=== PATIENT | female | born 1990 | race African-American/Black ===

== ENCOUNTER 2020-04-13 10:22 | Emergency (ER) | payer MEDICAID ==
[~2020-04-13] VITALS: Ht 165.1 cm; Wt 128.0 kg
[~2020-04-13 10:22] MED LIST: FLOV22
[2020-04-13 11:38] LABS: BASOPHILS % 0.8 % (0.0-2.0); EOSINOPHILS % 1.2 % (0.0-5.0); HEMATOCRIT. 43.8 % (36.0-48.0); HEMOGLOBIN. 15.3 g/dL (12.0-16.0); LYMPHOCYTES % 36.8 % (20.0-50.0); MEAN CORPUSCULAR HEMOGLOBIN 32.8 pg (28.0-32.0); MEAN CORPUSCULAR VOLUME 93.8 fL (81.0-99.0); MEAN PLATELET VOLUME 9.9 fl (7.4-10.4); NEUTROPHILS % 56.2 % (40.0-76.0); PLATELET 251 x1000/uL (130-400); RED BLOOD CELL COUNT 4.67 mill/uL (4.2-5.4); RED CELL DISTRIBUTION WIDTH 13.8 % (11.6-14.6)
[2020-04-13 11:40] LABS: CLARITY URINE TURBID (CLEAR); COLOR URINE RED (YELLOW); KETONES URINE TRACE (NEGATIVE); LEUKOCYTE ESTERASE URINE 1+ (NEGATIVE); NITRITE URINE NEGATIVE (NEGATIVE); OCCULT BLOOD URINE 3+ (NEGATIVE); PROTEIN URINE 1+ (NEGATIVE); SPECIFIC GRAVITY URINE 1.014 (1.005-1.030)
[2020-04-13 11:46] LABS: CHLORIDE 110 mEq/L (98-107)
[2020-04-13 12:23] LABS: B-HCG QUANTITATIVE < 1 mIU/mL (<3)
[2020-04-13] MEDS ORDERED: AZITHROMYCIN 500 MG TABLET PO ONE (13:00)
[2020-04-13] MEDS ORDERED: CEFTRIAXONE SODIUM 250 MG/VIAL IM ONE (13:00)
[2020-04-13 13:08] VITALS: BP 125/80
[2020-04-16 04:07] LABS: NEISSERIA GONORRHOEAE NAA Negative (Negative)
== END 2020-04-13 13:10 | disposition home or self-care (01) ==
LOC: ER 10:22
DX: N72 Inflammatory disease of cervix uteri (principal); N93.9 Abnormal uterine and vaginal bleeding, unspecified; E66.9 Obesity, unspecified; Z68.42 Body mass index [BMI] 45.0-49.9, adult; Z98.890 Other specified postprocedural states
CPT/HCPCS: 36415; 76830; 76856; 80053; 81003; 81025; 84702; 85025; 87210; 87491; 87591; 93005; 96372; 99285; J0696

== ENCOUNTER 2020-07-30 22:13 | Emergency (ER) | payer MEDICAID, OTHER ==
[~2020-07-30] VITALS: Ht 165.1 cm; Wt 129.0 kg
[2020-07-31] MEDS ORDERED: KETOROLAC 60MG/2ML VIAL IM STA (00:19)
[2020-07-31 00:47] LABS: CLARITY URINE CLOUDY (CLEAR); COLOR URINE YELLOW (YELLOW); KETONES URINE NEGATIVE (NEGATIVE); LEUKOCYTE ESTERASE URINE 1+ (NEGATIVE); NITRITE URINE NEGATIVE (NEGATIVE); OCCULT BLOOD URINE NEGATIVE (NEGATIVE); PH URINE 5.5 (4.5-8.0); PROTEIN URINE NEGATIVE (NEGATIVE); SPECIFIC GRAVITY URINE 1.016 (1.005-1.030); UROBILINOGEN URINE 0.2 E.U./dL (0.2-1.0)
[2020-07-31] MEDS ORDERED: BACITRACIN ZINC OINT UDPKT TOP ONE (01:15)
[2020-07-31] MEDS ORDERED: LIDOCAINE HCL/PF 1% 10 MG/ML 5ML VIAL IJ ONE (01:15)
[2020-07-31 02:28] VITALS: BP 124/79
== END 2020-07-31 02:28 | disposition home or self-care (01) ==
LOC: ER 22:13
DX: N76.4 Abscess of vulva (principal); E66.9 Obesity, unspecified; Z68.42 Body mass index [BMI] 45.0-49.9, adult; Z98.890 Other specified postprocedural states
CPT/HCPCS: 56405; 81003; 81025; 96372; 99284; J1885; J3490; 99283

== ENCOUNTER 2021-01-19 17:17 | Emergency (ER) | payer OTHER ==
[~2021-01-19] VITALS: Ht 165.1 cm; Wt 127.0 kg
[2021-01-19] MEDS ORDERED: KETOROLAC 60MG/2ML VIAL IM STA (18:06)
[2021-01-19 19:48] LABS: CLARITY URINE CLEAR (CLEAR); COLOR URINE YELLOW (YELLOW); KETONES URINE NEGATIVE (NEGATIVE); LEUKOCYTE ESTERASE URINE NEGATIVE (NEGATIVE); NITRITE URINE NEGATIVE (NEGATIVE); OCCULT BLOOD URINE NEGATIVE (NEGATIVE); PH URINE 5.5 (4.5-8.0); PROTEIN URINE NEGATIVE (NEGATIVE); SPECIFIC GRAVITY URINE 1.015 (1.005-1.030); UROBILINOGEN URINE 0.2 E.U./dL (0.2-1.0)
[2021-01-19] MEDS ORDERED: IBUP-2029 MT (20:20)
[2021-01-19] MEDS ORDERED: CYCL10TA7 MT (20:20)
[2021-01-19 20:25] VITALS: BP 135/67
== END 2021-01-19 20:35 | disposition home or self-care (01) ==
LOC: ER 17:17
DX: M54.5 Low back pain (principal); M54.16 Radiculopathy, lumbar region; Z98.890 Other specified postprocedural states
CPT/HCPCS: 72100; 81003; 81025; 96372; 99284; J1885; Z7610

== ENCOUNTER 2021-02-22 09:56 | Emergency (ER) | payer MEDICAID, OTHER ==
[~2021-02-22] VITALS: Ht 165.1 cm; Wt 120.0 kg
[~2021-02-22 09:56] MED LIST changes: +CYCL10TA7 MT; +IBUP-2029 MT
[2021-02-22 10:52] VITALS: BP 145/96
[2021-02-22] MEDS ORDERED: DIPHENHYDRAMINE 50MG CAPSULE PO ONE (11:00)
[2021-02-22] MEDS ORDERED: CEPHALEXIN 250MG CAPSULE PO ONE (11:00)
== END 2021-02-22 12:30 | disposition left against medical advice (07) ==
LOC: ER 10:13
DX: T50.995A Adverse effect of other drugs, medicaments and biological substances, initial encounter (principal); F12.10 Cannabis abuse, uncomplicated; F17.210 Nicotine dependence, cigarettes, uncomplicated; Z98.890 Other specified postprocedural states; Y92.018 Other place in single-family (private) house as the place of occurrence of the external cause
CPT/HCPCS: 99283; Q0163

== ENCOUNTER 2021-09-19 19:17 | Emergency (ER) | payer OTHER ==
[~2021-09-19] VITALS: Ht 167.6 cm; Wt 118.0 kg
[2021-09-19] MEDS ORDERED: TETANUS, DIPHTHERIA, PERTUSSIS VAC/PF 0.5ML (>10YR OLD) IM ONE (20:30)
[2021-09-19] MEDS ORDERED: KETOROLAC 30MG/ML VIAL IM ONE (20:30)
[2021-09-19 22:00] VITALS: BP 130/92
== END 2021-09-19 22:00 | disposition home or self-care (01) ==
LOC: ER 19:17
DX: S91.119A Laceration without foreign body of unspecified toe without damage to nail, initial encounter (principal); F12.10 Cannabis abuse, uncomplicated; Z98.890 Other specified postprocedural states; Y93.01 Activity, walking, marching and hiking; Y92.89 Other specified places as the place of occurrence of the external cause; Y99.8 Other external cause status
CPT/HCPCS: 12002; 73630; 90471; 90715; 96372; 99284; J1885; Z7610

== ENCOUNTER 2022-05-29 14:47 | Emergency (ER) | payer MEDICAID, OTHER ==
[~2022-05-29] VITALS: Ht 165.1 cm; Wt 127.0 kg
[~2022-05-29 14:47] MED LIST changes: +CYCL10TA21 MT; -CYCL10TA7 MT
[2022-05-29 21:34] LABS: CLARITY URINE CLOUDY (CLEAR); COLOR URINE YELLOW (YELLOW); KETONES URINE NEGATIVE (NEGATIVE); LEUKOCYTE ESTERASE URINE TRACE (NEGATIVE); NITRITE URINE NEGATIVE (NEGATIVE); OCCULT BLOOD URINE NEGATIVE (NEGATIVE); PH URINE 5.5 (4.5-8.0); PROTEIN URINE NEGATIVE (NEGATIVE); UROBILINOGEN URINE 0.2 E.U./dL (0.2-1.0)
[2022-05-29] MEDS ORDERED: METOCLOPRAMIDE HCL 10MG/2ML VIAL IV ONE (22:00)
[2022-05-29] MEDS ORDERED: KETOROLAC 15MG/ML VIAL IV NR (22:00)
[2022-05-29] MEDS ORDERED: METOCLOPRAMIDE HCL 10 MG in SODIUM CHLORIDE 0.9% 50 ML IV NR (22:00)
[2022-05-29] MEDS ORDERED: IBUP-2029 MT (23:14)
[2022-05-29 23:22] VITALS: BP 124/78
== END 2022-05-29 23:25 | disposition home or self-care (01) ==
LOC: ER 14:47
DX: R51.9 Headache, unspecified (principal); F12.10 Cannabis abuse, uncomplicated; Z98.890 Other specified postprocedural states; Z79.899 Other long term (current) drug therapy
CPT/HCPCS: 81003; 96365; 96375; 99284; J1885; J2765

== ENCOUNTER 2023-01-14 20:24 | Emergency (ER) | payer MEDICAID, OTHER ==
[~2023-01-14] VITALS: Ht 165.1 cm; Wt 136.0 kg
[2023-01-14 20:58] VITALS: BP 123/89
[2023-01-14] MEDS ORDERED: DIPHENHYDRAMINE 50MG CAPSULE PO ONE (22:00)
[2023-01-14] MEDS ORDERED: DIPHENHYDRAMINE 25MG CAPSULE PO NR (22:00)
[2023-01-14] MEDS ORDERED: PREDNISONE 20MG TABLET PO ONE (22:00)
[2023-01-14] MEDS ORDERED: FAMOTIDINE 20MG TABLET PO ONE (22:00)
[2023-01-14] MEDS ORDERED: TETRACAINE 0.5% OPHTH DROPS 4ML RIGHTEYE ONE (23:30)
[2023-01-14] MEDS ORDERED: FLUORESCEIN SODIUM 1MG/STRIP RIGHTEYE ONE (23:30)
[2023-01-15] MEDS ORDERED: POLY10DR RIGHTEYE (00:09)
[2023-01-15] MEDS ORDERED: FAMO-135 MT (00:09)
[2023-01-15] MEDS ORDERED: DIPH25CA83 MT (00:09)
[2023-01-15] MEDS ORDERED: P50 MT (00:09)
== END 2023-01-15 00:20 | disposition home or self-care (01) ==
LOC: ER 20:24
DX: T78.40XA Allergy, unspecified, initial encounter (principal); X58.XXXA Exposure to other specified factors, initial encounter; F12.10 Cannabis abuse, uncomplicated; Z79.899 Other long term (current) drug therapy
CPT/HCPCS: 81025; 99284; J7512; Q0163

== ENCOUNTER 2023-01-27 12:09 | Emergency (ER) | payer OTHER ==
[~2023-01-27] VITALS: Ht 165.1 cm; Wt 136.0 kg
[~2023-01-27 12:09] MED LIST changes: +DIPH25CA83 MT; +FAMO-135 MT; +P50 MT; +POLY10DR RIGHTEYE
[2023-01-27 12:25] VITALS: BP 142/92
[2023-01-27 13:14] LABS: BASOPHILS % 0.9 % (0.0-2.0); EOSINOPHILS % 0.7 % (0.0-5.0); HEMATOCRIT. 41.1 % (36.0-48.0); HEMOGLOBIN. 14.5 g/dL (12.0-16.0); LYMPHOCYTES % 31.8 % (20.0-50.0); MEAN CORPUSCULAR HEMOGLOBIN 32.9 pg (28.0-32.0); MEAN PLATELET VOLUME 9.7 fl (7.4-10.4); MONOCYTES % 4.5 % (2.0-8.0); NEUTROPHILS % 62.1 % (40.0-76.0); PLATELET 260 x1000/uL (130-400); RED BLOOD CELL COUNT 4.42 mill/uL (4.2-5.4); RED CELL DISTRIBUTION WIDTH 13.6 % (11.6-14.6)
[2023-01-27 13:21] LABS: CHLORIDE 107 mEq/L (98-107)
[2023-01-27 13:31] LABS: CLARITY URINE CLOUDY (CLEAR); COLOR URINE YELLOW (YELLOW); KETONES URINE TRACE (NEGATIVE); LEUKOCYTE ESTERASE URINE 2+ (NEGATIVE); NITRITE URINE NEGATIVE (NEGATIVE); OCCULT BLOOD URINE NEGATIVE (NEGATIVE); PROTEIN URINE NEGATIVE (NEGATIVE)
[2023-01-27 15:19] LABS: HCG SCREEN NEGATIVE
== END 2023-01-27 17:45 | disposition home or self-care (01) ==
LOC: ER 12:09
DX: R42 Dizziness and giddiness (principal); F12.10 Cannabis abuse, uncomplicated; Z98.890 Other specified postprocedural states
CPT/HCPCS: 36415; 71045; 80053; 81003; 81025; 84484; 84703; 85025; 93005; 99285

== ENCOUNTER 2023-05-10 12:30 | Emergency (ER) | payer OTHER ==
[~2023-05-10] VITALS: Ht 165.1 cm; Wt 135.0 kg
[2023-05-10 12:48] VITALS: BP 144/96; PULSE 89; RESP 17; TEMP 98.6; O2SAT 98
[2023-05-10] MEDS ORDERED: KETOROLAC 60MG/2ML VIAL IM ONE (14:15)
[2023-05-10] MEDS ORDERED: IBUP-2030 MT (16:20)
== END 2023-05-10 16:46 | disposition home or self-care (01) ==
LOC: ER 12:30
DX: S83.92XA Sprain of unspecified site of left knee, initial encounter (principal); Z98.890 Other specified postprocedural states; X58.XXXA Exposure to other specified factors, initial encounter; Y93.89 Activity, other specified; Y92.89 Other specified places as the place of occurrence of the external cause; Y99.8 Other external cause status
CPT/HCPCS: 73562; 99283

== ENCOUNTER 2023-10-19 19:23 | Emergency (ER) | payer OTHER ==
[~2023-10-19] VITALS: Ht 167.6 cm; Wt 136.0 kg
[~2023-10-19 19:23] MED LIST changes: +IBUP-2030 MT
[2023-10-19 19:35] VITALS: BP 146/101; PULSE 94; RESP 24; TEMP 98.4; O2SAT 98
== END 2023-10-20 01:46 | disposition left against medical advice (07) ==
LOC: ER 19:23
DX: T78.40XA Allergy, unspecified, initial encounter (principal); Z53.21 Procedure and treatment not carried out due to patient leaving prior to being seen by health care provider; X58.XXXA Exposure to other specified factors, initial encounter
CPT/HCPCS: 81025; 99281

== ENCOUNTER 2023-12-13 16:04 | Emergency (ER) | payer MEDICAID, OTHER ==
[~2023-12-13] VITALS: Ht 167.6 cm; Wt 138.0 kg
[2023-12-13 16:37] VITALS: BP 115/70; PULSE 92; RESP 16; TEMP 98.8; O2SAT 100
[2023-12-14] MEDS ORDERED: CEPH500C2 MT (13:11)
== END 2023-12-13 20:31 | disposition left against medical advice (07) ==
LOC: ER 16:04
DX: R51.9 Headache, unspecified (principal); Z53.21 Procedure and treatment not carried out due to patient leaving prior to being seen by health care provider
CPT/HCPCS: 99281

== ENCOUNTER 2023-12-14 10:20 | Emergency (ER) | payer MEDICAID ==
[~2023-12-14] VITALS: Ht 172.7 cm; Wt 123.0 kg
[2023-12-14 10:27] VITALS: O2SAT 100
[2023-12-14 11:49] LABS: BASOPHILS % 0.4 % (0.0-2.0); EOSINOPHILS % 0.9 % (0.0-5.0); HEMATOCRIT. 41.5 % (36.0-48.0); HEMOGLOBIN. 14.5 g/dL (12.0-16.0); LYMPHOCYTES % 29.8 % (20.0-50.0); MEAN CORPUSCULAR HEMOGLOBIN 32.1 pg (28.0-32.0); MEAN CORPUSCULAR HGB CONC 34.9 g/dL (31.0-37.0); MEAN PLATELET VOLUME 9.6 fl (7.4-10.4); MONOCYTES % 5.1 % (2.0-8.0); NEUTROPHILS % 63.8 % (40.0-76.0); PLATELET 240 x1000/uL (130-400); RED BLOOD CELL COUNT 4.51 mill/uL (4.2-5.4); RED CELL DISTRIBUTION WIDTH 13.9 % (11.6-14.6); WHITE BLOOD COUNT 11.6 x1000/uL (4.5-11.0)
[2023-12-14 11:57] LABS: CLARITY URINE CLEAR (CLEAR); COLOR URINE YELLOW (YELLOW); GLUCOSE URINE NEGATIVE (NEGATIVE); KETONES URINE NEGATIVE (NEGATIVE); LEUKOCYTE ESTERASE URINE 3+ (NEGATIVE); NITRITE URINE NEGATIVE (NEGATIVE); OCCULT BLOOD URINE NEGATIVE (NEGATIVE); PH URINE 6.5 (4.5-8.0); PROTEIN URINE NEGATIVE (NEGATIVE); SPECIFIC GRAVITY URINE 1.007 (1.005-1.030); UROBILINOGEN URINE 0.2 E.U./dL (0.2-1.0)
[2023-12-14] MEDS: ACETAMINOPHEN 325MG TABLET PO ONE (12:00)
[2023-12-14 12:03] LABS: CHLORIDE 108 mEq/L (98-107); POTASSIUM 4.5 mEq/L (3.5-5.1); SODIUM 137 mEq/L (136-145)
[2023-12-14 12:04] LABS: CALCIUM 9.5 mg/dL (8.7-10.4); CARBON DIOXIDE 22 mEq/L (21-32)
[2023-12-14 12:09] LABS: CREATININE 0.9 mg/dL (0.6-1.0); GLUCOSE 109 mg/dL (70-105); UREA NITROGEN BLOOD 14 mg/dL (9-23)
[2023-12-14 12:11] LABS: ALANINE AMINOTRANSFERASE 17 IU/L (10-49); ALBUMIN 4.6 g/dL (3.2-4.8); ASPARTATE AMINOTRANSFERASE 16 IU/L (<34); TROPONIN I HIGH SENSITIVITY < 4 ng/L (3.0-34)
[2023-12-14 12:12] LABS: BILIRUBIN TOTAL 0.4 mg/dL (0.1-1.0)
[2023-12-14 12:16] LABS: HCG SCREEN NEGATIVE
[2023-12-14 12:30] LABS: SQUAMOUS EPITHELIAL CELL URINE 2+ /lpf (RARE/1+)
[2023-12-14 12:35] LABS: WBC URINE 15-25 /hpf (0-2)
[2023-12-14 12:36] LABS: BACTERIA URINE 2+; RBC URINE 0-2 /hpf (0-2)
[2023-12-14] MEDS ORDERED: CEPH500C2 MT (13:11)
[2023-12-14 14:22] VITALS: BP 138/99; PULSE 84; RESP 18; TEMP 97.8
== END 2023-12-14 14:34 | disposition home or self-care (01) ==
LOC: ER 10:20
DX: N39.0 Urinary tract infection, site not specified (principal); I10 Essential (primary) hypertension; M54.2 Cervicalgia; F17.200 Nicotine dependence, unspecified, uncomplicated; Z91.018 Allergy to other foods; Z88.8 Allergy status to other drugs, medicaments and biological substances; Z98.890 Other specified postprocedural states
CPT/HCPCS: 36415; 80053; 81003; 81025; 84484; 84703; 85025; 87077; 93005; 99284

== ENCOUNTER 2024-01-13 12:15 | Emergency (ER) | payer MEDICAID, OTHER ==
[~2024-01-13] VITALS: Ht 175.3 cm; Wt 121.0 kg
[~2024-01-13 12:15] MED LIST changes: +CEPH500C2 MT
[2024-01-13 12:23] VITALS: BP 147/89; PULSE 89; RESP 18; TEMP 98.2; O2SAT 97
[2024-01-13] MEDS ORDERED: CLIN60LO6 TP (13:32)
[2024-01-13] MEDS ORDERED: DOXY-456 MT (13:32)
== END 2024-01-13 14:31 | disposition home or self-care (01) ==
LOC: ER 12:15
DX: L73.9 Follicular disorder, unspecified (principal); Z98.890 Other specified postprocedural states; Z79.899 Other long term (current) drug therapy
CPT/HCPCS: 99283